=== PATIENT | female | born 2000 | race Caucasian/White ===

== ENCOUNTER 2020-08-31 20:53 | Emergency (ER) | payer OTHER ==
[~2020-08-31 20:53] MED LIST: DIFLUCAN150 MG PO; MACROBID 100 M100 M1 PO; PYRIDIUM100 MG PO
[2020-08-31 21:19] LABS: HEMOGLOBIN 13.3 gm/dl (12.3-15.3); RED BLOOD COUNT 4.61 M/UL (4.00-5.10); WHITE BLOOD COUNT 22.7 K/UL (4.5-11.0)
[2020-08-31 22:10] LABS: BUN/CREATININE RATIO 28 (0-10)
== END 2020-09-01 01:50 | disposition short-term general hospital (02) ==
LOC: ER1 20:53
PROVIDERS: Family Medicine
DX: S27.0XXA Traumatic pneumothorax, initial encounter (principal); S72.002A Fracture of unspecified part of neck of left femur, initial encounter for closed fracture; N39.0 Urinary tract infection, site not specified; V47.6XXA Car passenger injured in collision with fixed or stationary object in traffic accident, initial encounter; Y92.410 Unspecified street and highway as the place of occurrence of the external cause
CPT/HCPCS: 70496; 70498; 71045; 71275; 72170; 73552; 73560; 73590; 80053; 80307; 81001; 82550; 82553; 84484; 85025; 85610; 90471; 90715; 99285; G0480; J1885; J2250; J2270; J2405; Q9967